=== PATIENT | male | born 1935 | race Native Hawaiian/Other Pacific Islander ===

== ENCOUNTER 2020-12-23 13:24 | Outpatient (CLI) | payer OTHER ==
[2020-12-23 14:35] LABS: PLATELET COUNT 169 K/uL (142-355)
[2020-12-23 15:07] LABS: POTASSIUM 4.6 mmol/L (3.6-5.2)
== END 2020-12-23 19:21 | disposition home or self-care (01) ==
LOC: LAB 13:24
PROVIDERS: ATTEND Nurse Practitioner Family
DX: Z00.00 Encounter for general adult medical examination without abnormal findings (principal); Z79.899 Other long term (current) drug therapy; R53.83 Other fatigue; I10 Essential (primary) hypertension; E78.49 Other hyperlipidemia; E53.8 Deficiency of other specified B group vitamins; E55.9 Vitamin D deficiency, unspecified
CPT/HCPCS: 80053; 80061; 82306; 82607; 83036; 84439; 84443; 85027